=== PATIENT | female | born 1960 | race Caucasian/White ===

== ENCOUNTER 2024-07-07 18:22 | Inpatient (IN) | payer MEDICARE, MEDICAID ==
[~2024-07-07] VITALS: Ht 160 cm; Wt 69.4 kg
[2024-07-07 19:00] VITALS: BP 141/60; PULSE 60; RESP 18; TEMP 98.5; O2SAT 97
[2024-07-07 20:00] VITALS: O2SAT 97
[2024-07-07] MEDS ORDERED: NITROGLYCERIN 0.4 MG SUBLINGUAL TABLET #25 SL PRN (20:15)
[2024-07-07] MEDS ORDERED: DEXTROSE 50%-WATER 25 GM/50 ML SYRINGE IVP PRN (20:30)
[2024-07-07] MEDS: SENNOSIDES 8.6 MG TABLET PO SCH (21:00)
[2024-07-07] MEDS: *PATIENT'S OWN MED [ENTER DRUG, DOSE, FREQUENCY IN COMMENTS] CLINICAL ONE (21:00)
[2024-07-07] MEDS: DOCUSATE SODIUM 100 MG CAPSULE PO SCH (21:00)
[2024-07-07] MEDS: ETHYL ALCOHOL 62% ANTISEPTIC NASAL SANITIZER 0.6 ML AMPUL NASAL SCH (21:50)
[2024-07-07] MEDS: SACUBITRIL/VALSARTAN 97-103 MG TABLET PO SCH (21:50)
[2024-07-07] MEDS: ACETAMINOPHEN 500 MG TABLET PO PRN (21:54)
[2024-07-07 23:01] LABS: GLUCOMETER DEV NAME(LOC) 2WR.2B; GLUCOSE,POINT OF CARE 127 MG/DL (70-110)
[2024-07-07] MEDS: MELATONIN 5 MG TABLET PO PRN (23:29)
[2024-07-08 07:00] LABS: GLUCOMETER DEV NAME(LOC) 2WR.1D; GLUCOSE,POINT OF CARE 94 MG/DL (70-110)
[2024-07-08 07:43] LABS: APPEARANCE,URINE TURBID (CLEAR); BILIRUBIN,URINE NEGATIVE (NEGATIVE); COLOR,URINE ORANGE (YELLOW); GLUCOSE, URINE (UA) 150-200 mg/dL (NEGATIVE); KETONES,URINE NEGATIVE (NEGATIVE); LEUKOCYTE ESTERASE ,URINE LARGE (NEGATIVE); NITRATE,URINE NEGATIVE (NEGATIVE); OCCULT BLOOD,URINE LARGE (NEGATIVE); PH,URINE 6.5 (5.0-8.0); PROTEIN,URINE 300-600,SEE CONFIRM mg/dL (NEGATIVE); SPECIFIC GRAVITIY, URINE 1.024 (1.003-1.030); UROBILINOGEN,URINE <=1.0 mg/dL (<=1.0)
[2024-07-08 08:00] VITALS: BP 146/71; PULSE 62; RESP 19; TEMP 98.1; O2SAT 97
[2024-07-08 08:05] VITALS: BP 146/77; PULSE 62; RESP 19; TEMP 98.1; O2SAT 97
[2024-07-08 08:06] LABS: BASOPHILS % (AUTO) 0.6 % (0.0-2.0); EOSINOPHILS % (AUTO) 4.1 % (1.0-6.0); HEMOGLOBIN 8.3 g/dL (12.0-16.0); LYMPHOCYTES # (AUTO) 1.1 K/uL (1.0-4.8); LYMPHOCYTES % (AUTO) 16.9 % (22.0-44.0); MEAN CORPUSCULAR HEMOGLOBIN 27.7 pg (26.0-34.0); MEAN CORPUSCULAR HGB CONC 33.3 G/dL (31.0-37.0); MEAN CORPUSCULAR VOLUME 83 fL (80-100); MONOCYTES # (AUTO) 0.3 K/uL (0.1-1.0); NEUTROPHILS # (AUTO) 4.8 K/uL (1.8-7.7); NEUTROPHILS % (AUTO) 73.4 % (40.0-70.0); PLATELET COUNT (AUTO) 230 K/uL (150-450); RED BLOOD CELL COUNT(AUTO) 3.01 MIL/uL (4.00-5.20); RED CELL DISTRIBUTION WIDTH 14.3 % (11.5-14.5); WHITE BLOOD COUNT (AUTO) 6.6 K/uL (4.5-11.0)
[2024-07-08 08:25] LABS: ALBUMIN 1.3 g/dL (3.4-5.0); BILIRUBIN,TOTAL 0.2 mg/dL (0.1-1.0); CALCIUM, TOTAL 7.5 mg/dL (8.8-10.5); CREATININE 1.66 mg/dL (0.60-1.30); POTASSIUM 3.8 mmol/L (3.5-5.1); TOTAL PROTEIN, SERUM 4.7 g/dL (6.4-8.2)
[2024-07-08] MEDS: FERROUS SULFATE 325 MG EC TABLET PO SCH (08:36)
[2024-07-08] MEDS: CLOPIDOGREL BISULFATE 75 MG TABLET PO SCH (08:37)
[2024-07-08] MEDS: ASPIRIN 81 MG DR TABLET PO SCH (08:37)
[2024-07-08] MEDS: ROSUVASTATIN CALCIUM 20 MG TABLET PO SCH (08:37)
[2024-07-08] MEDS: OMEGA-3/DHA/EPA/FISH OIL 1,000 MG CAPSULE PO SCH (08:37)
[2024-07-08] MEDS: CHOLECALCIFEROL (VIT D3) 1,000 UNITS [25 MCG] TABLET PO SCH (08:37)
[2024-07-08] MEDS: CARVEDILOL 6.25 MG TABLET PO SCH (08:38)
[2024-07-08] MEDS: HydrOXYzine HCL 25 MG TABLET PO PRN (08:38)
[2024-07-08] MEDS: SERTRALINE HCL 50 MG TABLET PO SCH (08:38)
[2024-07-08] MEDS: EMPAGLIFLOZIN 25 MG TABLET PO SCH (08:38)
[2024-07-08] MEDS: INSULIN LISPRO 100 UNITS/ML SQ SCH (08:40)
[2024-07-08 08:48] LABS: SULFOSALICYLIC ACID,URINE 3+ (Negative)
[2024-07-08 08:49] LABS: BACTERIA,URINE Many /HPF (None Seen); RBC,URINE >100 /HPF (0-2); SQUAMOUS EPITHELIAL CELL,UR Many /LPF (None Seen); WBC,URINE Full Field /HPF (0-5)
[2024-07-08] MEDS: FINERENONE 10 MG PO SCH (10:14)
[2024-07-08 12:15] LABS: GLUCOMETER DEV NAME(LOC) 2WR.2B; GLUCOSE,POINT OF CARE 155 MG/DL (70-110)
[2024-07-08] MEDS: INSULIN GLARGINE,HUM.REC.ANLOG 100 UNITS/ML SQ SCH (12:39)
[2024-07-08] MEDS: INSULIN LISPRO 100 UNITS/ML SQ PRN (12:40)
[2024-07-08 17:00] VITALS: BP 148/66; PULSE 61; RESP 19; TEMP 98.1; O2SAT 98
[2024-07-08 17:30] LABS: GLUCOMETER DEV NAME(LOC) 2WR.2B; GLUCOSE,POINT OF CARE 71 MG/DL (70-110)
[2024-07-08 18:44] VITALS: BP 139/60; PULSE 53; RESP 19
[2024-07-08 20:00] VITALS: BP 154/54; PULSE 56; RESP 18; TEMP 98; O2SAT 99
[2024-07-08] MEDS: BusPIRone HCL 5 MG TABLET PO SCH (20:29)
[2024-07-08 22:00] LABS: GLUCOMETER DEV NAME(LOC) 2WR.2B; GLUCOSE,POINT OF CARE 82 MG/DL (70-110)
[2024-07-08 22:00] LABS: GLUCOMETER DEV NAME(LOC) 2WR.2B; GLUCOSE,POINT OF CARE 102 MG/DL (70-110)
[2024-07-08 22:00] LABS: GLUCOMETER DEV NAME(LOC) 2WR.2B; GLUCOSE,POINT OF CARE 63 MG/DL (70-110)
[2024-07-09 07:15] LABS: GLUCOMETER DEV NAME(LOC) 2WR.1D; GLUCOSE,POINT OF CARE 96 MG/DL (70-110)
[2024-07-09 08:04] VITALS: BP 149/59; PULSE 68; RESP 19; TEMP 98.4; O2SAT 95
[2024-07-09 12:05] LABS: GLUCOMETER DEV NAME(LOC) 2WR.1D; GLUCOSE,POINT OF CARE 160 MG/DL (70-110)
[2024-07-09] MEDS: INSULIN GLARGINE,HUM.REC.ANLOG 100 UNITS/ML SQ SCH (12:51)
[2024-07-09] MEDS ORDERED: SODIUM CHLORIDE 0.9% 100 ML ONE (14:17)
[2024-07-09] MEDS: CefTRIAXone 1 GM/DEXTROSE 50 ML IV SCH (14:56)
[2024-07-09 17:25] LABS: GLUCOMETER DEV NAME(LOC) 2WR.1D; GLUCOSE,POINT OF CARE 153 MG/DL (70-110)
[2024-07-09 20:05] VITALS: BP 145/62; PULSE 68; RESP 18; TEMP 98.4; O2SAT 98
[2024-07-09 20:45] LABS: GLUCOMETER DEV NAME(LOC) 2WR.2B; GLUCOSE,POINT OF CARE 115 MG/DL (70-110)
[2024-07-09] MEDS: 0.9% SODIUM CHLORIDE 10 ML SYRINGE IVP SCH (21:00)
[2024-07-09 23:49] VITALS: O2SAT 98
[2024-07-10 07:01] LABS: GLUCOMETER DEV NAME(LOC) 2WR.2B; GLUCOSE,POINT OF CARE 177 MG/DL (70-110)
[2024-07-10 08:10] VITALS: BP 160/63; PULSE 62; RESP 19; TEMP 98.3; O2SAT 98
[2024-07-10] MEDS: FAMOTIDINE 20 MG TABLET PO SCH (08:20)
[2024-07-10 09:10] VITALS: BP 153/63; PULSE 60
[2024-07-10 12:10] LABS: GLUCOMETER DEV NAME(LOC) 2WR.2B; GLUCOSE,POINT OF CARE 203 MG/DL (70-110)
[2024-07-10 18:00] LABS: GLUCOMETER DEV NAME(LOC) 2WR.2B; GLUCOSE,POINT OF CARE 144 MG/DL (70-110)
[2024-07-10 20:00] VITALS: BP 150/55; PULSE 64; RESP 18; TEMP 97.8; O2SAT 97
[2024-07-10 23:01] LABS: GLUCOMETER DEV NAME(LOC) 2WR.2B; GLUCOSE,POINT OF CARE 73 MG/DL (70-110)
[2024-07-11 06:36] LABS: GLUCOMETER DEV NAME(LOC) 2WR.2B; GLUCOSE,POINT OF CARE 90 MG/DL (70-110)
[2024-07-11 08:00] VITALS: BP 163/66; PULSE 68; RESP 18; TEMP 97.8; O2SAT 97
[2024-07-11 11:50] LABS: GLUCOMETER DEV NAME(LOC) 2WR.2B; GLUCOSE,POINT OF CARE 146 MG/DL (70-110)
[2024-07-11] MEDS: INSULIN GLARGINE,HUM.REC.ANLOG 100 UNITS/ML SQ SCH (12:43)
[2024-07-11] MEDS: FERROUS SULFATE 325 MG EC TABLET PO SCH (17:18)
[2024-07-11 17:41] LABS: GLUCOMETER DEV NAME(LOC) 2WR.1D; GLUCOSE,POINT OF CARE 134 MG/DL (70-110)
[2024-07-11 19:40] VITALS: BP 120/52; PULSE 61; RESP 18; TEMP 98.4; O2SAT 96
[2024-07-11 20:51] LABS: GLUCOMETER DEV NAME(LOC) 2WR.1D; GLUCOSE,POINT OF CARE 157 MG/DL (70-110)
[2024-07-12 01:02] VITALS: O2SAT 96
[2024-07-12 07:11] LABS: GLUCOMETER DEV NAME(LOC) 2WR.1D; GLUCOSE,POINT OF CARE 162 MG/DL (70-110)
[2024-07-12 08:00] VITALS: BP 158/65; PULSE 62; RESP 18; TEMP 98; O2SAT 98
[2024-07-12 09:30] VITALS: BP 114/48; PULSE 57
[2024-07-12] MEDS: CEFDINIR 300 MG CAPSULE PO SCH (10:23)
[2024-07-12 12:45] LABS: GLUCOMETER DEV NAME(LOC) 2WR.2B; GLUCOSE,POINT OF CARE 246 MG/DL (70-110)
[2024-07-12 16:19] VITALS: BP 158/63; PULSE 60
[2024-07-12 17:45] LABS: GLUCOMETER DEV NAME(LOC) 2WR.1D; GLUCOSE,POINT OF CARE 178 MG/DL (70-110)
[2024-07-12 20:01] VITALS: BP 164/57; PULSE 60; RESP 18; TEMP 98.3; O2SAT 99
[2024-07-12 20:45] LABS: GLUCOMETER DEV NAME(LOC) 2WR.2B; GLUCOSE,POINT OF CARE 75 MG/DL (70-110)
[2024-07-12 23:47] VITALS: O2SAT 99
[2024-07-13] VITALS (9 sets, daily range): BP systolic 119–187; BP diastolic 42–74; PULSE 57–70; RESP 18; TEMP 97.9–98.2; O2SAT 97
[2024-07-13 07:10] LABS: GLUCOMETER DEV NAME(LOC) 2WR.1D; GLUCOSE,POINT OF CARE 271 MG/DL (70-110)
[2024-07-13] MEDS: AmLODIPine BESYLATE 5 MG TABLET PO SCH (09:18)
[2024-07-13 09:28] LABS: BASOPHILS % (AUTO) 0.9 % (0.0-2.0); EOSINOPHILS % (AUTO) 4.7 % (1.0-6.0); HEMATOCRIT 26.4 % (36-46); HEMOGLOBIN 8.7 g/dL (12.0-16.0); LYMPHOCYTES # (AUTO) 1.2 K/uL (1.0-4.8); LYMPHOCYTES % (AUTO) 19.2 % (22.0-44.0); MEAN CORPUSCULAR HEMOGLOBIN 27.5 pg (26.0-34.0); MEAN CORPUSCULAR VOLUME 83 fL (80-100); MONOCYTES # (AUTO) 0.4 K/uL (0.1-1.0); MONOCYTES % (AUTO) 5.6 % (2.0-9.0); NEUTROPHILS # (AUTO) 4.3 K/uL (1.8-7.7); NEUTROPHILS % (AUTO) 69.6 % (40.0-70.0); PLATELET COUNT (AUTO) 214 K/uL (150-450); RED BLOOD CELL COUNT(AUTO) 3.16 MIL/uL (4.00-5.20); RED CELL DISTRIBUTION WIDTH 14.1 % (11.5-14.5); WHITE BLOOD COUNT (AUTO) 6.3 K/uL (4.5-11.0)
[2024-07-13 09:45] LABS: CALCIUM, TOTAL 7.9 mg/dL (8.8-10.5); CREATININE 1.58 mg/dL (0.60-1.30); POTASSIUM 4.8 mmol/L (3.5-5.1)
[2024-07-13] MEDS: HydrALAZINE HCL 20 MG/ML VIAL IVP PRN (10:20)
[2024-07-13 12:40] LABS: GLUCOMETER DEV NAME(LOC) 2WR.2B; GLUCOSE,POINT OF CARE 280 MG/DL (70-110)
[2024-07-13 17:21] LABS: GLUCOMETER DEV NAME(LOC) 2WR.1D; GLUCOSE,POINT OF CARE 153 MG/DL (70-110)
[2024-07-14 03:11] LABS: GLUCOMETER DEV NAME(LOC) 2WR.2B; GLUCOSE,POINT OF CARE 110 MG/DL (70-110)
[2024-07-14 06:56] LABS: GLUCOMETER DEV NAME(LOC) 2WR.2B; GLUCOSE,POINT OF CARE 186 MG/DL (70-110)
[2024-07-14 08:05] VITALS: BP 160/59; PULSE 72; RESP 18; TEMP 97.9; O2SAT 96
[2024-07-14 08:30] VITALS: BP 165/56; PULSE 62; RESP 18; O2SAT 96
[2024-07-14 09:41] VITALS: BP 144/49; PULSE 60; RESP 18
[2024-07-14 13:16] LABS: GLUCOMETER DEV NAME(LOC) 2WR.2B; GLUCOSE,POINT OF CARE 252 MG/DL (70-110)
[2024-07-14 16:55] VITALS: BP 124/45; PULSE 65; RESP 18
[2024-07-14 17:31] LABS: GLUCOMETER DEV NAME(LOC) 2WR.2B; GLUCOSE,POINT OF CARE 256 MG/DL (70-110)
[2024-07-14 20:44] VITALS: BP 138/58; PULSE 63; RESP 18; TEMP 98; O2SAT 63; O2SAT 98
[2024-07-14 21:56] LABS: GLUCOMETER DEV NAME(LOC) 2WR.1D; GLUCOSE,POINT OF CARE 217 MG/DL (70-110)
[2024-07-14 22:19] VITALS: O2SAT 98
[2024-07-15] MEDS ORDERED: ROSU20TA98 PO (05:10)
[2024-07-15] MEDS ORDERED: FERR325T27 PO (05:10)
[2024-07-15] MEDS ORDERED: CHOL25TA4 PO (05:10)
[2024-07-15] MEDS ORDERED: SACU1TAB4 PO (05:10)
[2024-07-15] MEDS ORDERED: BUSP5TAB20 PO (05:10)
[2024-07-15] MEDS ORDERED: CARV6 PO (05:10)
[2024-07-15] MEDS ORDERED: ASPI-1450 PO (05:10)
[2024-07-15] MEDS ORDERED: OMEG100033 PO (05:10)
[2024-07-15] MEDS ORDERED: SERT-158 PO (05:10)
[2024-07-15] MEDS ORDERED: FAMO20 PO (05:10)
[2024-07-15] MEDS ORDERED: AMLO-257 PO (05:10)
[2024-07-15] MEDS ORDERED: CLOP75TA60 PO (05:10)
[2024-07-15] MEDS ORDERED: EMPA25TA3 PO (05:10)
[2024-07-15 07:10] LABS: GLUCOMETER DEV NAME(LOC) 2WR.2B; GLUCOSE,POINT OF CARE 163 MG/DL (70-110)
[2024-07-15 08:40] VITALS: BP 158/68; PULSE 67; RESP 19; TEMP 98.1; O2SAT 97
[2024-07-15 09:31] VITALS: O2SAT 97
[2024-07-15 11:30] LABS: GLUCOMETER DEV NAME(LOC) 2WR.1D; GLUCOSE,POINT OF CARE 246 MG/DL (70-110)
[2024-07-15] MEDS: INSULIN GLARGINE,HUM.REC.ANLOG 100 UNITS/ML SQ SCH (12:21)
[2024-07-15 17:00] VITALS: BP 140/62; PULSE 70; RESP 18; TEMP 98.6; O2SAT 98
[2024-07-15 17:16] LABS: GLUCOMETER DEV NAME(LOC) 2WR.2B; GLUCOSE,POINT OF CARE 177 MG/DL (70-110)
[2024-07-15 20:00] VITALS: BP 125/49; PULSE 68; RESP 18; TEMP 98.2; O2SAT 98
[2024-07-15 21:55] LABS: GLUCOMETER DEV NAME(LOC) 2WR.1D; GLUCOSE,POINT OF CARE 163 MG/DL (70-110)
[2024-07-16 01:00] VITALS: BP 155/64; PULSE 60; RESP 18; O2SAT 98
[2024-07-16 06:55] LABS: GLUCOMETER DEV NAME(LOC) 2WR.1D; GLUCOSE,POINT OF CARE 205 MG/DL (70-110)
[2024-07-16 08:00] VITALS: BP 138/71; PULSE 70; RESP 18; TEMP 98.2; O2SAT 98
[2024-07-16 11:50] LABS: GLUCOMETER DEV NAME(LOC) 2WR.1D; GLUCOSE,POINT OF CARE 214 MG/DL (70-110)
[2024-07-16] MEDS: INSULIN GLARGINE,HUM.REC.ANLOG 100 UNITS/ML SQ SCH (12:25)
[2024-07-16 17:20] LABS: GLUCOMETER DEV NAME(LOC) 2WR.2B; GLUCOSE,POINT OF CARE 136 MG/DL (70-110)
[2024-07-16 20:00] VITALS: BP 126/42; PULSE 63; RESP 18; TEMP 98; O2SAT 98
[2024-07-16 21:31] LABS: GLUCOMETER DEV NAME(LOC) 2WR.1D; GLUCOSE,POINT OF CARE 184 MG/DL (70-110)
[2024-07-17] VITALS (8 sets, daily range): BP systolic 117–187; BP diastolic 41–71; PULSE 58–67; RESP 18–19; TEMP 98–98.2; O2SAT 96–98
[2024-07-17 07:06] LABS: GLUCOMETER DEV NAME(LOC) 2WR.2B; GLUCOSE,POINT OF CARE 176 MG/DL (70-110)
[2024-07-17 12:31] LABS: GLUCOMETER DEV NAME(LOC) 2WR.1D; GLUCOSE,POINT OF CARE 240 MG/DL (70-110)
[2024-07-17 16:56] LABS: GLUCOMETER DEV NAME(LOC) 2WR.1D; GLUCOSE,POINT OF CARE 177 MG/DL (70-110)
[2024-07-17 20:35] LABS: GLUCOMETER DEV NAME(LOC) 2WR.1D; GLUCOSE,POINT OF CARE 101 MG/DL (70-110)
[2024-07-18] VITALS (7 sets, daily range): BP systolic 126–196; BP diastolic 48–68; PULSE 54–63; RESP 18; TEMP 97.9–98.1; O2SAT 97–98
[2024-07-18] MEDS ORDERED: FINE10TA PO (01:53)
[2024-07-18 06:51] LABS: GLUCOMETER DEV NAME(LOC) 2WR.1D; GLUCOSE,POINT OF CARE 232 MG/DL (70-110)
[2024-07-18] MEDS: LOSARTAN POTASSIUM 25 MG TABLET PO SCH (08:47)
[2024-07-18] MEDS: AmLODIPine BESYLATE 5 MG TABLET PO ONE (08:47)
[2024-07-18] MEDS ORDERED: AmLODIPine BESYLATE 5 MG TABLET PO SCH (09:00)
[2024-07-18 12:21] LABS: GLUCOMETER DEV NAME(LOC) 2WR.2B; GLUCOSE,POINT OF CARE 245 MG/DL (70-110)
[2024-07-18 18:50] LABS: GLUCOMETER DEV NAME(LOC) 2WR.2B; GLUCOSE,POINT OF CARE 207 MG/DL (70-110)
[2024-07-18 20:15] LABS: GLUCOMETER DEV NAME(LOC) 2WR.2B; GLUCOSE,POINT OF CARE 165 MG/DL (70-110)
[2024-07-19 07:00] LABS: GLUCOMETER DEV NAME(LOC) 2WR.1D; GLUCOSE,POINT OF CARE 170 MG/DL (70-110)
[2024-07-19 08:00] VITALS: BP 153/51; PULSE 63; RESP 18; TEMP 97.8; O2SAT 97
[2024-07-19] MEDS: AmLODIPine BESYLATE 10 MG TABLET PO SCH (08:04)
[2024-07-19 12:21] LABS: GLUCOMETER DEV NAME(LOC) 2WR.1D; GLUCOSE,POINT OF CARE 221 MG/DL (70-110)
[2024-07-19 16:56] LABS: GLUCOMETER DEV NAME(LOC) 2WR.2B; GLUCOSE,POINT OF CARE 189 MG/DL (70-110)
[2024-07-19 17:00] VITALS: BP 130/50; PULSE 61; RESP 18; O2SAT 97
[2024-07-19 20:00] VITALS: BP 124/51; PULSE 63; RESP 18; TEMP 98.5; O2SAT 97
[2024-07-19 20:36] LABS: GLUCOMETER DEV NAME(LOC) 2WR.2B; GLUCOSE,POINT OF CARE 174 MG/DL (70-110)
[2024-07-20 06:51] LABS: GLUCOMETER DEV NAME(LOC) 2WR.2B; GLUCOSE,POINT OF CARE 185 MG/DL (70-110)
[2024-07-20 08:10] VITALS: BP 140/60; PULSE 68; RESP 18; TEMP 98.2; O2SAT 98
[2024-07-20 08:48] VITALS: O2SAT 98
[2024-07-20] MEDS ORDERED: CHOL25TA4 PO (10:33)
[2024-07-20] MEDS ORDERED: OMEG100033 PO (10:33)
[2024-07-20] MEDS ORDERED: CARV6 PO (10:33)
[2024-07-20] MEDS ORDERED: CLOP75TA60 PO (10:33)
[2024-07-20] MEDS ORDERED: FERR325T27 PO (10:33)
[2024-07-20] MEDS ORDERED: BUSP5TAB20 PO (10:33)
[2024-07-20] MEDS ORDERED: FAMO20 PO (10:33)
[2024-07-20] MEDS ORDERED: AMLO-258 PO (10:33)
[2024-07-20] MEDS ORDERED: ASPI-1444 PO (10:33)
[2024-07-20] MEDS ORDERED: FOLI-130 PO (10:33)
[2024-07-20] MEDS ORDERED: SACU1TAB4 PO (10:33)
[2024-07-20] MEDS ORDERED: NITR0.4T52 SL (10:33)
[2024-07-20] MEDS ORDERED: SENN-374 PO (10:33)
[2024-07-20] MEDS ORDERED: DOCU-385 PO (10:33)
[2024-07-20] MEDS ORDERED: ROSU20TA98 PO (10:33)
[2024-07-20] MEDS ORDERED: SERT-439 PO (10:33)
[2024-07-20] MEDS ORDERED: INSLAN SQ (10:33)
[2024-07-20] MEDS ORDERED: LOSA-417 PO (10:33)
[2024-07-20] MEDS ORDERED: EMPA25TA3 PO (10:33)
[2024-07-20] MEDS ORDERED: INSU100V SQ ×2 (10:33)
== END 2024-07-20 11:40 | disposition home health service (06) | DRG 64 ==
LOC: 2WR 19:12
PROVIDERS: ADMIT Physical Medicine & Rehabilitation; ATTEND Physical Medicine & Rehabilitation
DX: I63.511 Cerebral infarction due to unspecified occlusion or stenosis of right middle cerebral artery (principal); I21.4 Non-ST elevation (NSTEMI) myocardial infarction; G81.94 Hemiplegia, unspecified affecting left nondominant side; E46 Unspecified protein-calorie malnutrition; N39.0 Urinary tract infection, site not specified; I12.9 Hypertensive chronic kidney disease with stage 1 through stage 4 chronic kidney disease, or unspecified chronic kidney disease; I25.10 Atherosclerotic heart disease of native coronary artery without angina pectoris; E11.22 Type 2 diabetes mellitus with diabetic chronic kidney disease; J45.909 Unspecified asthma, uncomplicated; E11.65 Type 2 diabetes mellitus with hyperglycemia; R13.10 Dysphagia, unspecified; R29.810 Facial weakness; R47.1 Dysarthria and anarthria; Z74.09 Other reduced mobility; E11.40 Type 2 diabetes mellitus with diabetic neuropathy, unspecified; E11.51 Type 2 diabetes mellitus with diabetic peripheral angiopathy without gangrene; N18.30 Chronic kidney disease, stage 3 unspecified; F41.9 Anxiety disorder, unspecified; Z98.61 Coronary angioplasty status; Z87.891 Personal history of nicotine dependence; Z83.3 Family history of diabetes mellitus; D63.8 Anemia in other chronic diseases classified elsewhere; S91.302A Unspecified open wound, left foot, initial encounter; X58.XXXA Exposure to other specified factors, initial encounter; Y93.89 Activity, other specified; Y92.89 Other specified places as the place of occurrence of the external cause; Y99.8 Other external cause status; Z68.27 Body mass index [BMI] 27.0-27.9, adult
CPT/HCPCS: 80048; 80053; 81001; 81002; 82962; 85025; 87081; 87086; 87186; 92507; 92523; 93005; 97110; 97112; 97116; 97140; 97163; 97167; 97530; 97535; 99366; J0360; J0696; J1815; J7050